=== PATIENT | female | born 1945 | race Caucasian/White ===

== ENCOUNTER 2016-12-29 10:01 | Outpatient (CLI) | payer MEDICARE, OTHER ==
--- NOTE | 2016-12-29 12:02 | CT ---
CT CHEST WITH IV CONTRAST 12/29/16 PROVIDED CLINICAL HISTORY: Lung cancer. FINDINGS: Comparison is made with the study dated 09/15/16. The heart, pericardium and great vessels demonstrate a stable CT appearance. A large right pleural effusion is redemonstrated, similar to the prior study. Atelectasis involving the right middle and right lower lobe is again seen. Emphysematous changes are again noted. The airw ay appears patent and unchanged in caliber. There is no new pulmonary parenchymal abnormality appare nt. There is no evidence for thoracic lymph node enlargement. The visualized portions of the upper a bdomen demonstrate a stable CT appearance with a 1.6 cm left adrenal nodule again demonstrated. The osseous structures demonstrate no concerning osteoblastic or osteolytic lesion. IMPRESSION: Stable exam. POS: [facility]
[2016-12-29] MEDS ORDERED: Iopamidol 370 76% 100 ML VIAL ONE (13:40)
== END 2016-12-29 10:02 | disposition home or self-care (01) ==
LOC: CT 10:01
PROVIDERS: ATTEND Internal Medicine Hematology & Oncology
DX: C34.90 Malignant neoplasm of unspecified part of unspecified bronchus or lung (principal)
CPT/HCPCS: 71260

== ENCOUNTER 2017-04-04 10:43 | Outpatient (CLI) | payer MEDICARE, OTHER ==
--- NOTE | 2017-04-04 12:46 | RAD ---
CHEST TWO VIEWS: HISTORY: Dyspnea. COMPARISON: CT chest from 12/29/2016 and radiograph from 09/15/2016. FINDINGS: The thickening along the right hilum is similar with rightward buckling of the trachea. Layering eff usion is similar. The left lung is clear. There is volume loss in the right lung. New from the comparison examination is a compression deformity, mid thoracic spine, likely at the lev el of T5 or T6. IMPRESSION: New compression deformity of the thoracic spine, likely at T5 or T6. MRI thoracic spine with and wit hout contrast may be beneficial, if there is concern for metastatic disease. CODE T POS: [facility]
== END 2017-04-04 10:44 | disposition home or self-care (01) ==
LOC: RAD 10:43
PROVIDERS: ATTEND Internal Medicine Critical Care Medicine
DX: R06.00 Dyspnea, unspecified (principal); M43.9 Deforming dorsopathy, unspecified
CPT/HCPCS: 71046

== ENCOUNTER 2017-04-13 10:19 | Outpatient (CLI) | payer MEDICARE, OTHER ==
[2017-04-13] MEDS ORDERED: Iopamidol 370 76% 100 ML VIAL ONE (13:01)
--- NOTE | 2017-04-13 13:20 | CT ---
CT CHEST WITH CONTRAST: HISTORY: Lung cancer and adrenal mass. Follow-up exam. COMPARISON: 12/29/2016 and 09/15/2016 TECHNIQUE: Multiple contiguous axial images were obtained in a CT of the chest with contrast. Coronal reformats were performed. FINDINGS: The heart is normal in size. No enlarged hilar or mediastinal lymph nodes are seen. There is a small to moderate right pleural effusion. Atelectasis is again seen in the hilar region, involving the right middle lobe and the right lower lobe. This is unchanged compared to the prior ex amination. No left pleural effusion is seen. Emphysematous changes are seen in the lungs. No pulmo nary nodule is seen in the aerated lungs. There is a nodule in the left adrenal gland measuring approximately 1.4 cm on today's examination. T he patient is status post cholecystectomy. The other visualized subdiaphragmatic structures are unre markable. Degenerative changes are seen in the spine. No suspicious osseous lesions are identified. IMPRESSION: 1. Stable central atelectasis in the right middle lobe and right lower lobe with an adjacent pleural effusion. 2. Stable to slightly smaller left adrenal nodule. POS: [facility]
== END 2017-04-13 10:20 | disposition home or self-care (01) ==
LOC: CT 10:19
PROVIDERS: ATTEND Internal Medicine Hematology & Oncology
DX: C34.31 Malignant neoplasm of lower lobe, right bronchus or lung (principal); J98.11 Atelectasis; J90 Pleural effusion, not elsewhere classified; E27.9 Disorder of adrenal gland, unspecified
CPT/HCPCS: 71260; 82565

== ENCOUNTER 2017-08-01 09:44 | Outpatient (CLI) | payer MEDICARE, OTHER ==
--- NOTE | 2017-08-01 11:18 | RAD ---
TWO VIEWS OF THE CHEST: DATE: 08/01/17. COMPARISON: 04/04/17 and prior. HISTORY: Dyspnea. FINDINGS: There is no pneumothorax. The left lung appears clear. No left pleural effusion. There is architec tural distortion in the hilar region on the right, stable. Increased pulmonary parenchymal opacities seen in the right suprahilar region and right infrahilar region, similar when compared to prior imag ing. There is a moderate-sized pleural effusion on the right which may be slightly enlarged when com pared to the prior examination. IMPRESSION: Architectural distortion in the right hilar region consistent with the provided history of malignancy . Moderate-sized right pleural effusion may be slightly larger than on the prior examination. Luis Alberto nued followup is advised. POS: [facility]
== END 2017-08-01 09:45 | disposition home or self-care (01) ==
LOC: RAD 09:44
PROVIDERS: ATTEND Internal Medicine Critical Care Medicine
DX: J90 Pleural effusion, not elsewhere classified (principal); R06.00 Dyspnea, unspecified; R91.8 Other nonspecific abnormal finding of lung field
CPT/HCPCS: 71046

== ENCOUNTER 2017-09-15 08:47 | Outpatient (CLI) | payer MEDICARE, OTHER ==
[2017-09-15] MEDS ORDERED: ISOVUE-370 76%-LOCM 1 ML ONE (12:11)
== END 2017-09-15 08:48 | disposition home or self-care (01) ==
LOC: BICCT 08:47
PROVIDERS: ATTEND Internal Medicine Hematology & Oncology
DX: C34.90 Malignant neoplasm of unspecified part of unspecified bronchus or lung (principal); J90 Pleural effusion, not elsewhere classified
CPT/HCPCS: 71260

== ENCOUNTER 2017-11-23 10:33 | Outpatient (CLI) | payer MEDICARE, OTHER ==
--- NOTE | 2017-11-23 11:54 | MMO ---
BILATERAL SCREENING MAMMOGRAM: COMPARISON: 10/23/14, 11/29/10, 01/04/06. HISTORY: A 72-year-old female. Routine screening mammography. TECHNIQUE: CC and MLO views of both breasts are submitted for interpretation. This patient's mammogram is revie wed with the assistance of computer-aided detection. FINDINGS: Breasts are composed of scattered fibroglandular tissue. No suspicious dominant mass, architectural distortion, or suspicious calcification. Bilateral benign-appearing calcifications are identified. IMPRESSION: BI-RADS category 2, benign findings. RECOMMENDATION: Annual mammogram. BIRADS 2: Benign Finding(s) Routine annual screening mammography (for women over age 40) POS: [facility]
== END 2017-11-23 10:34 | disposition home or self-care (01) ==
LOC: SCSMAMMO 10:33
PROVIDERS: ATTEND Family Medicine
DX: Z12.31 Encounter for screening mammogram for malignant neoplasm of breast (principal)
CPT/HCPCS: 77067

== ENCOUNTER 2018-01-16 08:21 | Outpatient (CLI) | payer MEDICARE, OTHER ==
--- NOTE | 2018-01-16 10:24 | CT ---
CT CHEST WITH CONTRAST: HISTORY: History of lung cancer. COMPARISON: 09/15/2017 TECHNIQUE: Multiple contiguous axial images were obtained in a CT of the chest with contrast. Coronal reformats were performed. FINDINGS: There is a moderate right pleural effusion with adjacent atelectasis. Emphysematous changes are seen in the lungs. No significant change has occurred compared to the prior examination. The left lung is well aerated without evidence of pleural effusion or atelectasis. The heart is normal in size without focal cardiac abnormality. No hilar or mediastinal lymphadenopat hy is seen. There is a mass in the left adrenal gland, measuring 1.4 cm in greatest dimension. The other visuali zed subdiaphragmatic structures are unremarkable. Degenerative changes are seen in the spine. The c hest wall soft tissues are unremarkable. IMPRESSION: 1. Stable right pleural effusion with adjacent atelectasis. 2. Emphysema. 3. Stable left adrenal mass. POS: [facility]
[2018-01-16] MEDS ORDERED: ISOVUE-370 76%-LOCM 1 ML ONE (15:51)
== END 2018-01-16 08:22 | disposition home or self-care (01) ==
LOC: BICCT 08:21
PROVIDERS: ATTEND Internal Medicine Hematology & Oncology
DX: C34.31 Malignant neoplasm of lower lobe, right bronchus or lung (principal); R06.00 Dyspnea, unspecified; R11.2 Nausea with vomiting, unspecified; J43.9 Emphysema, unspecified; E27.9 Disorder of adrenal gland, unspecified
CPT/HCPCS: 71046; 71260

== ENCOUNTER 2018-01-16 09:52 | Outpatient (CLI) | payer MEDICARE, OTHER ==
--- NOTE | 2018-01-16 11:33 | RAD ---
PA AND LATERAL CHEST: HISTORY: Dyspnea. COMPARISON: 08/01/2017 FINDINGS: A moderate sized right pleural effusion is again seen. The left lung is clear. The heart size is no rmal. Architectural distortion in the right hilum is again noted. IMPRESSION: Stable examination. POS: [facility]
== END 2018-01-16 09:53 | disposition home or self-care (01) ==
LOC: RAD 09:52
PROVIDERS: ATTEND Internal Medicine Critical Care Medicine
DX: R06.00 Dyspnea, unspecified (principal)
CPT/HCPCS: 71046

== ENCOUNTER 2018-05-11 08:52 | Outpatient (CLI) | payer MEDICARE, OTHER ==
[2018-05-11] MEDS ORDERED: ISOVUE-370 76%-LOCM 1 ML ONE (10:27)
--- NOTE | 2018-05-11 11:26 | CT ---
CT OF CHEST PERFORMED WITH INTRAVENOUS CONTRAST ENHANCEMENT: HISTORY: Followup of lung cancer. COMPARISON: 01/16/2018 study. FINDINGS: There is a large right pleural effusion present with passive atelectasis in the right lower lobe, sta ble as compared to the prior exam. Severe emphysematous lung changes are seen. These changes appear stable. The thoracic aorta is normal in caliber. No significant mediastinal, hilar, or axillary adenopathy. Visualized liver parenchyma shows no focal abnormalities. An approximately 1.3 cm left adrenal lesio n is stable. The right adrenal is normal. The gallbladder has been removed. IMPRESSION: 1. Stable overall exam. 2. Large right pleural effusion with atelectasis in the right lower lobe unchanged. 3. Severe emphysematous lung change. 4. Stable left adrenal nodule. POS: [facility]
== END 2018-05-11 08:53 | disposition home or self-care (01) ==
LOC: BICCT 08:52
PROVIDERS: ATTEND Internal Medicine Hematology & Oncology
DX: C34.31 Malignant neoplasm of lower lobe, right bronchus or lung (principal); J90 Pleural effusion, not elsewhere classified; J98.11 Atelectasis; E27.8 Other specified disorders of adrenal gland; J43.9 Emphysema, unspecified
CPT/HCPCS: 71260; Q9966

== ENCOUNTER 2018-08-16 09:39 | Outpatient (CLI) | payer MEDICARE, OTHER ==
--- NOTE | 2018-08-16 11:38 | RAD ---
2 VIEWS CHEST: Date: 08/16/18 COMPARISON: 01/16/18. HISTORY: Dyspnea. FINDINGS: 2 views of the chest show normal sized cardiomediastinal silhouette. There is a small right pleural e ffusion, unchanged. No consolidation is seen. IMPRESSION: Small right pleural effusion. POS: [facility]
== END 2018-08-16 09:40 | disposition home or self-care (01) ==
LOC: RAD 09:39
PROVIDERS: ATTEND Internal Medicine Critical Care Medicine
DX: R06.00 Dyspnea, unspecified (principal); J90 Pleural effusion, not elsewhere classified
CPT/HCPCS: 71046

== ENCOUNTER 2018-09-21 08:59 | Outpatient (CLI) | payer MEDICARE, OTHER ==
--- NOTE | 2018-09-21 11:04 | CT ---
CT CHEST WITH IV CONTRAST: HISTORY: Cancer of right lower lobe lung. COMPARISON: 05/11/2018. FINDINGS: Emphysematous changes in the lungs are again seen. The large right pleural effusion with an adjacent passive atelectasis in the right lower lobe is unchanged. No lung masses are identified. No medias tinal, hilar, or axillary lymphadenopathy is seen. There are vascular calcifications without thoracic aortic aneurysm or dissection. The pulmonary albina gaurav are well opacified without pulmonary embolism. There are degenerative changes in the spine. No osteolytic or osteoblastic lesions are seen. Upper abdominal tomograms demonstrate a stable 1.3 cm left adrenal nodule. The patient is post vishal cystectomy. IMPRESSION: Stable exam since 05/11/2018. POS: [facility]
[2018-09-21] MEDS ORDERED: ISOVUE-370 76%-LOCM 1 ML ONE (11:42)
== END 2018-09-21 09:00 | disposition home or self-care (01) ==
LOC: BICCT 08:59
PROVIDERS: ATTEND Internal Medicine Hematology & Oncology
DX: C34.31 Malignant neoplasm of lower lobe, right bronchus or lung (principal)
CPT/HCPCS: 71260; Q9966

== ENCOUNTER 2019-01-10 08:59 | Outpatient (CLI) | payer MEDICARE, OTHER ==
--- NOTE | 2019-01-10 10:03 | MMO ---
Bilateral MAMMO Bilat Screen [facility]. CLINICAL HISTORY: Patient is 73 years old and is seen for screening. The patient has no family history of breast cancer. The patient has a history of lung cancer at age 70. The patient has a history of left Excisional Biopsy at age 29 - benign. VIEWS: The views performed were: bilateral craniocaudal with tomosynthesis and bilateral mediolateral oblique with tomosynthesis. FILMS COMPARED: The present examination has been compared to prior imaging studies performed at [facility] on 10/23/2014 and 11/23/2017, and at [facility] on 01/04/2006 and 11/29/2010. This study has been interpreted with the assistance of computer-aided detection. MAMMOGRAM FINDINGS: There are scattered fibroglandular densities. There are stable benign appearing calcifications seen in both breasts. There are also vascular calcifications. There are no suspicious masses, suspicious calcifications, or new areas of architectural distortion. IMPRESSION: THERE IS NO MAMMOGRAPHIC EVIDENCE OF MALIGNANCY. A ROUTINE FOLLOW-UP MAMMOGRAM IN 1 YEAR IS RECOMMENDED. THE RESULTS OF THIS EXAM WERE SENT TO THE PATIENT. ACR BI-RADS Category 2 - Benign finding MAMMOGRAPHY NOTE: 1. A negative mammogram report should not delay a biopsy if a dominant of clinically suspicious mass is present. 2. Approximately 10% to 15% of breast cancers are not detected by mammography. 3. Adenosis and dense breasts may obscure an underlying neoplasm. Reported by: YOUNG VAZQUEZ MD Electonically Signed: [id number]
== END 2019-01-10 09:00 | disposition home or self-care (01) ==
LOC: BICMAMMO 08:59
PROVIDERS: ATTEND Family Medicine
DX: Z12.31 Encounter for screening mammogram for malignant neoplasm of breast (principal); Z85.118 Personal history of other malignant neoplasm of bronchus and lung; Z91.89 Other specified personal risk factors, not elsewhere classified
CPT/HCPCS: 77063; 77067

== ENCOUNTER 2019-01-17 09:09 | Outpatient (CLI) | payer MEDICARE, OTHER ==
--- NOTE | 2019-01-17 11:19 | CT ---
CHEST CT WITH CONTRAST: COMPARISON: 09/21/2018, 05/11/2018. HISTORY: Right lower lobe lung cancer. The patient has undergone chemotherapy and radiation therapy. FINDINGS: Lower neck and axilla: No lymphadenopathy. Mediastinum: No mass, lymphadenopathy or hematoma. Heart: Normal heart size. No significant pericardial effusion. Coronary calcifications are identified . Aorta: Appropriate enhancement and luminal diameter. Scattered atherosclerotic disease. Upper abdomen: No acute abnormality. Gallbladder is surgically absent. Stable 1.1 cm left adrenal nod ule. Trachea and central bronchi: Patent. Pleural spaces: There is persistent though decreased right-sided pleural fluid. No evidence of a left -sided pleural effusion. Pneumothorax: None. Lungs: There is partial resection of the right upper lobe. Stable emphysematous changes. There are li near densities along with consolidation involving the right lower lobe. The degree of opacification and linear densities is similar to exam. Stable irregular opacity in the middle lobe and residual rig ht lower lobe. Masses or nodules: No new suspicious masses or nodules. IMPRESSION: 1. Stable lung parenchymal changes. 2. Stable emphysema. 3. Interval decrease in size of a right-sided pleural effusion. 4. Stable left adrenal nodule. Transcribed Date/Time: 01/17/2019 11:26 AM
== END 2019-01-17 09:10 | disposition home or self-care (01) ==
LOC: BICCT 09:09
PROVIDERS: ATTEND Internal Medicine Hematology & Oncology
DX: C34.31 Malignant neoplasm of lower lobe, right bronchus or lung (principal); R11.2 Nausea with vomiting, unspecified; J43.9 Emphysema, unspecified; J90 Pleural effusion, not elsewhere classified; E27.8 Other specified disorders of adrenal gland; J98.4 Other disorders of lung
CPT/HCPCS: 71260

== ENCOUNTER 2019-02-21 10:44 | Outpatient (CLI) | payer MEDICARE, OTHER ==
--- NOTE | 2019-02-21 11:05 | RAD ---
EXAM: Chest PA and lateral: HISTORY: Dyspnea COMPARISON: 08/16/2018 FINDINGS: Heart: Normal cardiac silhouette Aorta: Unremarkable Pulmonary vessels: Normal Costophrenic angles: Stable right-sided pleural effusion Lungs: Chronic parenchymal changes in the right lung base. Stable elevation of the right hemidiaphrag m and blunting of the costophrenic angle. Pneumothorax: No pneumothorax Osseous structures: No osseous abnormalities IMPRESSION: Chronic changes in the right lung base.
== END 2019-02-21 10:45 | disposition home or self-care (01) ==
LOC: RAD 10:44
PROVIDERS: ATTEND Internal Medicine Critical Care Medicine
DX: R06.00 Dyspnea, unspecified (principal)
CPT/HCPCS: 71046

== ENCOUNTER 2019-05-18 18:45 | Emergency (ER) | payer MEDICARE, OTHER ==
[2019-05-18] MEDS ORDERED: HYDROcodone/Acetaminophen 5/325 mg Tablet ONE (19:48)
--- NOTE | 2019-05-18 20:05 | RAD ---
RIGHT KNEE RADIOGRAPHS FOUR VIEWS: 05/18/19 PROVIDED CLINICAL HISTORY: Right knee pain. FINDINGS: Comparison 10/19/26. There are transversely oriented, not significantly displaced fractures of the proximal tibial and fib ular metaphyseal regions. Degenerative changes involving the right knee are redemonstrated. Moderate knee joint capsular distention. IMPRESSION: Nondisplaced transversely oriented proximal tibial and fibular metaphyseal region fractures. POS: [facility]
--- NOTE | 2019-05-18 20:11 | CT ---
CT Brain WO Con: 05/18/2019 7:44 PM CLINICAL HISTORY: Fall with mild headache. IMAGING TECHNIQUE: Multiple CT images were obtained of the brain without IV contrast. COMPARISON: None. FINDINGS: Brain: There is mild generalized cerebral atrophy. No acute infarct, hemorrhage or hydrocephalus is present. Ventricles: Normal. No hydrocephalus. Skull: Intact. Visualized Paranasal sinuses: There is postprocedural change of prior sinus surgery involving the max illary sinuses and portions of the posterior ethmoid air cells. Mastoid air cells:Clear. Extracranial soft tissues:Normal. IMPRESSION: No acute intracranial abnormality.
--- NOTE | 2019-05-18 20:16 | CT ---
CT Cervical Spine WO Con Indication: Fall with neck pain COMPARISON: None. FINDINGS: Fracture: None. Spinal alignment: There is slight anterior translation of C4-C5 which is likely degenerative in natur e. Craniocervical junction: Within normal limits. Vertebral body heights: Maintained. Cervical spine degenerative change: Moderate to severe multilevel cervical spondylosis. There is adva nced disc degenerative disease at C6-7. There is moderate disc degenerative disease at C3-4 and C5-6. There is advanced multilevel facet osteoarthrosis. Lung apices: Severe emphysema IMPRESSION: No acute osseous abnormality.
== END 2019-05-18 21:35 | disposition home or self-care (01) ==
LOC: ERS 18:45
DX: S82.144A Nondisplaced bicondylar fracture of right tibia, initial encounter for closed fracture (principal); S89.201A Unspecified physeal fracture of upper end of right fibula, initial encounter for closed fracture; F32.9 Major depressive disorder, single episode, unspecified; Z87.891 Personal history of nicotine dependence; Z79.899 Other long term (current) drug therapy; W07.XXXA Fall from chair, initial encounter
CPT/HCPCS: 29505; 70450; 72125

== ENCOUNTER 2019-08-14 13:33 | Outpatient (CLI) | payer MEDICARE, OTHER ==
--- NOTE | 2019-08-14 14:21 | RAD ---
TWO VIEW CHEST: 08/14/19 INDICATIONS: Follow-up lung cancer. COMPARISON: 02/21/19. FINDINGS: Volume loss in the right chest again noted. Stranding in the right mid lung and blunting of the right CP angle again noted. Left lung remains clear. Heart and mediastinum unremarkable with slight shift to the right again noted. IMPRESSION: No significant interval change. POS: [facility]
== END 2019-08-14 13:34 | disposition home or self-care (01) ==
LOC: BICRAD 13:33
PROVIDERS: ATTEND Internal Medicine Critical Care Medicine
DX: R06.00 Dyspnea, unspecified (principal)
CPT/HCPCS: 71046

== ENCOUNTER 2019-12-03 13:25 | Outpatient (CLI) | payer MEDICARE, OTHER ==
[~2019-12-03 13:25] MED LIST: Iopamidol 370 76% 100 ML VIAL ONE
--- NOTE | 2019-12-03 14:38 | CT ---
CT chest with IV contrast HISTORY: Lung cancer. Restaging. COMPARISON: 08/01/2019. FINDINGS: Emphysematous changes involving each lung with hyperinflation of the left lung similar in a ppearance to the prior study. Coarsened interstitial thickening and parenchymal scarring involving the right lung base lower lobe and, to a lesser extent, right middle lobe less pronounced than on the prior study. Chronic changes along the medial aspect of the lower lobe, having the appearance of prior radiation port, stable. No lung nodules. Right pleural fluid has decreased slightly since the prior exam. There is calcification within the coronary arteries and other arterial structures. Very small low-den sity left adrenal nodule with adjacent calcification is stable. Gallbladder surgically absent. Mild chronic-appearing compressions of T7 and L2 are stable. Prominent degenerative changes lower cer vical spine partially visualized. IMPRESSION : Very slight interval decrease in right pleural fluid. Parenchymal scarring and radiation changes of t he right lung are otherwise stable. No new abnormalities are demonstrated.
== END 2019-12-03 13:26 | disposition home or self-care (01) ==
LOC: BICCT 13:25
PROVIDERS: ATTEND Internal Medicine Hematology & Oncology
DX: C34.31 Malignant neoplasm of lower lobe, right bronchus or lung (principal); J98.4 Other disorders of lung
CPT/HCPCS: 71260; Q9967

== ENCOUNTER 2020-02-18 10:26 | Outpatient (CLI) | payer MEDICARE, OTHER ==
--- NOTE | 2020-02-18 11:04 | RAD ---
EXAM: Chest PA and lateral: HISTORY: Dyspnea. COMPARISON: 08/14/2019 Correlation: 12/03/2019 FINDINGS: Heart: Normal cardiac silhouette Aorta: Unremarkable Pulmonary vessels: Normal Costophrenic angles: Stable blunting of the right costophrenic angle with stable pleural fluid. Lungs: Persistent diminished right lung volume. Patchy opacities are presumed to represent chronic ch yu. Residual neoplasm in the right lung cannot be excluded. Correlation made with chest CT 12/03/2019 does not demonstrate a suspected new opacity in the superior segment of the right lower lob e, best demonstrated on the lateral radiograph. Repeat chest CT may be beneficial Pneumothorax: No pneumothorax Osseous structures: No osseous abnormalities IMPRESSION: 1 Possible increased new opacity in the right lower lobe. Based upon clinical suspicion, repeat chest CT with contrast can be performed. 2. Redemonstration of a right-sided pleural effusion. CODE T
== END 2020-02-18 10:27 | disposition home or self-care (01) ==
LOC: BICRAD 10:26
PROVIDERS: ATTEND Internal Medicine Critical Care Medicine
DX: R06.00 Dyspnea, unspecified (principal); J90 Pleural effusion, not elsewhere classified
CPT/HCPCS: 71046

== ENCOUNTER 2020-03-17 14:04 | Outpatient (CLI) | payer MEDICARE, OTHER ==
--- NOTE | 2020-03-17 14:37 | RAD ---
EXAM: XR Chest Pa Lat STANDARD PROVIDED CLINICAL HISTORY: Follow-up pneumonia COMPARISON: 02/18/2020 FINDINGS: Cardiac and mediastinal silhouette is unchanged in appearance. There is persistent right hemithoracic volume loss with right basilar pleural-parenchymal opacity. There is increased airspace disease involving the right mid and lower lung zones. Emphysematous changes are redemonstrated. The left lung remains clear. There is no evidence for pneumothorax. IMPRESSION: Worsened airspace disease involving the right lung.
== END 2020-03-17 14:05 | disposition home or self-care (01) ==
LOC: BICRAD 14:04
PROVIDERS: ATTEND Internal Medicine Critical Care Medicine
DX: R06.00 Dyspnea, unspecified (principal); J98.4 Other disorders of lung
CPT/HCPCS: 71046

== ENCOUNTER 2020-03-20 08:23 | Outpatient (CLI) | payer MEDICARE, OTHER ==
--- NOTE | 2020-03-20 09:23 | CT ---
CT THORAX WITH CONTRAST: DATE: 03/20/2020 HISTORY: 74-year-old female with history of lung cancer with worsening pneumonia COMPARISON: 12/03/2019 FINDINGS: Again noted is the cardiomediastinal shift to the right due to chronic volume loss of the right lung. There are centrilobular emphysematous changes in the bilateral upper lobes and superior segment of le ft lower lobe. Previously, there was a chronic consolidation-soft tissue density confluent mass, which may represent scar tissue extending from the right inferior hilum down to the right posterior medial lung base, with architectural distortion, air bronchogram, and with associated small right pleural effusion. The size of this chronic consolidation is unchanged. However, a focal masslike component of this consolidation located directly posterior to the right mainstem bronchus, abutting the right lateral a spect of the esophagus, is now less dense (axial image 27 of 67, series 3 and series 2). The volume of right pleural effusion is has not greatly changed. At the right midlung zone, there were scattered previously demonstrated extensive pulmonary scarring. Currently, these areas have superimposed new infiltrates. (Axial images 31 and 38 of 67, series 3). No left-sided infiltrate or left pleural effusion. Small left adrenal nodule is unchanged consistent with adrenal adenoma. No cardiomegaly or pericardial effusion. No new mediastinal lymphadenopathy. No thoracic aortic aneurysm or dissection. IMPRESSION: 1) new or worsening infiltrates in the right lung, unchanged since prior CT, suspicious for infectiou s pneumonitis-pneumonia. 2) severe chronic changes of the right lung including post radiation changes, with chronic consolidat ion, and right pleural effusion, which are unchanged. 3) centrilobular emphysema
[2020-03-20] MEDS ORDERED: Iopamidol 370 76% 100 ML VIAL ONE (13:19)
== END 2020-03-20 08:24 | disposition home or self-care (01) ==
LOC: CT 08:23
PROVIDERS: ATTEND Internal Medicine Critical Care Medicine
DX: C34.90 Malignant neoplasm of unspecified part of unspecified bronchus or lung (principal); J43.2 Centrilobular emphysema; J18.1 Lobar pneumonia, unspecified organism; J90 Pleural effusion, not elsewhere classified
CPT/HCPCS: 71260; Q9967

== ENCOUNTER 2020-05-07 10:41 | Outpatient (CLI) | payer MEDICARE, OTHER ==
[2020-05-07 17:26] LABS: SARS-CoV-2 PCR by NAA Not Detected (NotDetected)
== END 2020-05-07 10:42 | disposition home or self-care (01) ==
LOC: LABBT 10:41
PROVIDERS: ATTEND Internal Medicine Hematology & Oncology
DX: Z01.812 Encounter for preprocedural laboratory examination (principal); Z20.822 Contact with and (suspected) exposure to COVID-19
CPT/HCPCS: U0003; U0005; 87635

== ENCOUNTER 2020-05-11 09:01 | Outpatient (CLI) | payer MEDICARE, OTHER ==
--- NOTE | 2020-05-11 22:39 | RAD ---
MODIFIED BARIUM SWALLOW WITH SPEECH THERAPIST: Date: 05/11/2020 HISTORY: 74-year-old female. Dysphagia, unspecified, R13.10. Feeding difficulties, R63.3. History of lung cancer. FINDINGS: Thin liquid swallow results in immediate strong penetration to the level of the vocal cords. Significant residua in vallecula. Elongated epiglottis results in incomplete epiglottic inversion. Hyoid protraction and laryngeal elevation adequate. [place]: Penetration. Large residue in vallecula which only minimally partially clears upon repeat swallow. [place] swallow with chin-tuck results in similar findings, with penetration and large amount of resid ue in vallecula. Large amount of vallecula with solids. IMPRESSION: 1. Pharyngeal dysphagia consisting of the followin. Significant penetration. 3. Significant residue in vallecula with all consistencies, with poor clearance upon repeat swallows . 4. Incomplete epiglottic inversion due to elongated epiglottis. 5. See complete report by speech therapist. POS: [facility]
== END 2020-05-11 09:02 | disposition home or self-care (01) ==
PROVIDERS: ATTEND Internal Medicine Hematology & Oncology
DX: R13.10 Dysphagia, unspecified (principal); R63.3 Feeding difficulties; Z85.118 Personal history of other malignant neoplasm of bronchus and lung
CPT/HCPCS: 74230

== ENCOUNTER 2020-05-19 11:56 | Outpatient (CLI) | payer MEDICARE, OTHER | END 2020-05-19 11:57 | disposition home or self-care (01) | LOC: BICRAD 11:56 | PROVIDERS: ATTEND Internal Medicine Critical Care Medicine | DX: R06.00 Dyspnea, unspecified (principal); J98.4 Other disorders of lung | CPT/HCPCS: 71046 ==

== ENCOUNTER 2020-07-13 17:50 | Inpatient (IN) | payer MEDICARE, OTHER ==
[~2020-07-13 17:50] MED LIST changes: -Iopamidol 370 76% 100 ML VIAL ONE; +Iopamidol-370 76% 500 ML 1 ML ONE
[2020-07-13 18:44] LABS: Hemoglobin 12.2 g/dL (12.0-16.0); Mean Corpuscular HGB CONC 33.5 g/dL (32.0-36.0); Mean Corpuscular Hemoglobin 28.4 pg (27.0-31.0); Mean Corpuscular Volume 84.7 fL (78.0-98.0); Mean Platelet Volume 7.9 fL (7.4-10.4); Platelet Count 301 thou/uL (130-400); RBC Distribution Width 15.5 % (11.5-14.5); Red Blood Cell (RBC) Count 4.31 mill/uL (4.20-5.40)
[2020-07-13 19:06] LABS: Band 2 % (5-11); Lymphocytes 19 % (21-51); MDiff Complete? YES; Monocytes 11 % (0-10); Neutrophil 67 % (42-75); Platelet Morphology Comment Appears Adequate; RBC Morphology Normal
[2020-07-13 19:14] LABS: ALT (SGPT) 29 U/L (8-55); AST (SGOT) 50 U/L (5-34); Albumin 3.4 g/dL (3.4-4.8); Alkaline Phosphatase 264 U/L (40-110); Anion Gap 16 mmol/L (10-20); BUN (Urea Nitrogen) 20 mg/dL (9.8-20.1); Bilirubin, Total 0.6 mg/dL (0.2-1.2); Calc. Creatinine Clearance 0 mL/min (70-130); Calcium 9.6 mg/dL (7.8-10.44); Carbon Dioxide 21 mmol/L (23-31); Chloride 101 mmol/L (98-107); Globulin 3.7 g/dL (2.4-3.5); Glucose 114 mg/dL (83-110); Potassium 4.8 mmol/L (3.5-5.1); Protein, Total 7.1 g/dL (5.8-8.1); Sodium 133 mmol/L (136-145)
[2020-07-13] MEDS ORDERED: cefTRIAXone\\ROCEPHIN 1 GM VIAL ONE (21:56)
[2020-07-13] MEDS ORDERED: HYDROcodone/Acetaminophen 5/325 mg Tablet PO PRN (22:13)
[2020-07-13] MEDS ORDERED: hydrALAZINE 20 MG/ML VIAL SLOW IVP PRN (22:16)
[2020-07-13] MEDS ORDERED: Azithromycin 500 MG VIAL ONE (22:55)
[2020-07-13] MEDS ORDERED: Vancomycin 1 GM in Premix Bag 1 BAG IVPB SCH (23:00)
[2020-07-13 23:35] LABS: Bacteria/HPF None Seen HPF (None Seen); Bilirubin Negative (Negative); Blood, Urine 1+ (Negative); Clarity Clear (Clear); Glucose, Urine (Dipstick) Normal (Negative); Ketone, Urine Negative (Negative); Leukocyte 500 Leu/uL (Negative); Nitrite Negative (Negative); Protein, Urine (Dipstick) 10 mg/dL (Neg-Trace); Specific Gravity, Urine 1.044 (1.002-1.036); Urobilinogen Normal mg/dL (Less than 2); WBC/HPF Greater than 50 HPF (0-3); pH, Urine 5.5 (5.0-9.0)
[2020-07-14 00:08] VITALS: BMI 22.1
[2020-07-14] MEDS: Dextrose 5 % And 0.9 % NaCl 1,000 ML IV SCH ×2 (00:28→22:31)
[2020-07-14] MEDS: Clindamycin/D5W 300 MG/50 ML BAG IVPB SCH ×2 (01:00→05:20)
[2020-07-14 05:25] LABS: SARS-CoV-2 PCR by NAA Not Detected (NotDetected)
[2020-07-14 06:58] LABS: Band 7 % (5-11); Eosinophils 4 % (0-10); Hemoglobin 9.5 g/dL (12.0-16.0); Lymphocytes 23 % (21-51); MDiff Complete? YES; Mean Corpuscular HGB CONC 33.1 g/dL (32.0-36.0); Mean Corpuscular Hemoglobin 28.4 pg (27.0-31.0); Mean Corpuscular Volume 85.7 fL (78.0-98.0); Mean Platelet Volume 7.9 fL (7.4-10.4); Monocytes 16 % (0-10); Neutrophil 49 % (42-75); Platelet Count 207 thou/uL (130-400); Platelet Morphology Comment Appears Adequate; RBC Distribution Width 15.3 % (11.5-14.5); Red Blood Cell (RBC) Count 3.36 mill/uL (4.20-5.40); White Blood Cell (WBC) Count 4.3 thou/uL (4.8-10.8)
[2020-07-14 07:06] LABS: Anion Gap 11 mmol/L (10-20); BUN (Urea Nitrogen) 16 mg/dL (9.8-20.1); Calc. Creatinine Clearance 53 mL/min (70-130); Calcium 8.3 mg/dL (7.8-10.44); Carbon Dioxide 23 mmol/L (23-31); Chloride 107 mmol/L (98-107); Glucose 109 mg/dL (83-110); Potassium 4.2 mmol/L (3.5-5.1); Sodium 137 mmol/L (136-145)
[2020-07-14] MEDS ORDERED: Sodium Chloride 0.9% 500 ML IV SCH (08:30)
[2020-07-14] MEDS: Midodrine HCl 5 MG TAB PO SCH ×3 (08:51→21:47)
[2020-07-14] MEDS: Famotidine/PF 20 mg/2ml Vial SLOW IVP SCH (08:54)
[2020-07-14] MEDS: Enoxaparin Sodium 40 MG/0.4 ML SYRINGE SC SCH (08:54)
[2020-07-14] MEDS: MEROPENEM 1 GM/50 ML 1 GM in Premix Bag 1 BAG IVPB SCH ×2 (09:29→17:27)
[2020-07-14] MEDS: Dextrose 5 %-0.45 % NaCl 1,000 ML IV SCH ×2 (13:00→21:46)
[2020-07-14] MEDS: methylPREDNISolone Sod Succ 40 MG VIAL IVP SCH ×2 (17:57→23:14)
[2020-07-14] MEDS ORDERED: Vancomycin HCl 1.25 GM in Sodium Chloride 0.9% 250 ML 250 ML IVPB SCH (23:00)
[2020-07-15] MEDS: MEROPENEM 1 GM/50 ML 1 GM in Premix Bag 1 BAG IVPB SCH ×3 (01:02→17:43)
[2020-07-15] MEDS: methylPREDNISolone Sod Succ 40 MG VIAL IVP SCH ×4 (05:34→23:44)
[2020-07-15] MEDS: Dextrose 5 %-0.45 % NaCl 1,000 ML IV SCH (05:38)
[2020-07-15] MEDS ORDERED: Sodium Chloride 0.9% 500 ML IV SCH (06:00)
[2020-07-15] MEDS ORDERED: Dextrose 5 %-0.45 % NaCl 1,000 ML IV SCH (08:01)
[2020-07-15] MEDS: Midodrine HCl 5 MG TAB PO SCH ×3 (08:22→20:17)
[2020-07-15] MEDS: Enoxaparin Sodium 40 MG/0.4 ML SYRINGE SC SCH (08:23)
[2020-07-15] MEDS: Famotidine/PF 20 mg/2ml Vial SLOW IVP SCH (08:23)
[2020-07-15] MEDS: Acetaminophen 325 MG TAB PO PRN (15:33)
[2020-07-15] MEDS: Melatonin 3 MG TAB PO SCH (21:24)
[2020-07-15] MEDS: clonazePAM 1 MG TAB PO SCH (21:24)
[2020-07-16] MEDS: MEROPENEM 1 GM/50 ML 1 GM in Premix Bag 1 BAG IVPB SCH ×3 (01:02→16:20)
[2020-07-16] MEDS: methylPREDNISolone Sod Succ 40 MG VIAL IVP SCH ×3 (05:31→17:38)
[2020-07-16] MEDS: Midodrine HCl 5 MG TAB PO SCH ×3 (08:18→20:49)
[2020-07-16] MEDS: clonazePAM 1 MG TAB PO SCH ×2 (08:18→20:50)
[2020-07-16] MEDS: Famotidine/PF 20 mg/2ml Vial SLOW IVP SCH (08:36)
[2020-07-16] MEDS: Acetaminophen 325 MG TAB PO PRN ×2 (08:36→17:38)
[2020-07-16] MEDS ORDERED: PROPOFOL 200 MG/20 ML VIAL ONE (11:34)
[2020-07-16] MEDS ORDERED: Ondansetron HCl/PF 4 MG/2 ML Vial IVP PRN (11:52)
[2020-07-16] MEDS ORDERED: Promethazine HCl 25 MG/ML VIAL SLOW IVP PRN (11:52)
[2020-07-16] MEDS ORDERED: Promethazine HCl 25 MG/ML VIAL IM PRN (11:52)
[2020-07-16] MEDS: Melatonin 3 MG TAB PO SCH (20:50)
[2020-07-17] MEDS: methylPREDNISolone Sod Succ 40 MG VIAL IVP SCH ×3 (00:25→12:42)
[2020-07-17] MEDS: MEROPENEM 1 GM/50 ML 1 GM in Premix Bag 1 BAG IVPB SCH ×2 (01:43→09:00)
[2020-07-17] MEDS: Enoxaparin Sodium 40 MG/0.4 ML SYRINGE SC SCH (08:58)
[2020-07-17] MEDS: clonazePAM 1 MG TAB PO SCH (09:00)
[2020-07-17] MEDS: Midodrine HCl 5 MG TAB PO SCH ×2 (09:00→17:48)
[2020-07-17] MEDS ORDERED: Pantoprazole 40 MG VIAL IVP SCH (09:00)
[2020-07-17 09:27] VITALS: TEMP 98
[2020-07-17 11:28] LABS: #Lymphocytes 0.4 thou/uL (1.20-3.40); #Monocytes 0.6 thou/uL (0.11-0.59); #Neutrophils 8.6 thou/uL (1.40-6.50); %Eosinophils 0.3 % (0.0-10.0); %Monocytes 5.9 % (0.0-10.0); %Neutrophils 89.8 % (42.0-75.0); Mean Corpuscular HGB CONC 31.6 g/dL (32.0-36.0); Mean Corpuscular Hemoglobin 27.2 pg (27.0-31.0); Mean Platelet Volume 7.9 fL (7.4-10.4); Platelet Count 376 thou/uL (130-400); RBC Distribution Width 16.2 % (11.5-14.5); Red Blood Cell (RBC) Count 3.69 mill/uL (4.20-5.40); White Blood Cell (WBC) Count 9.6 thou/uL (4.8-10.8)
[2020-07-17 11:41] LABS: Anion Gap 14 mmol/L (10-20); BUN (Urea Nitrogen) 21 mg/dL (9.8-20.1); Calc. Creatinine Clearance 46 mL/min (70-130); Calcium 9.3 mg/dL (7.8-10.44); Carbon Dioxide 24 mmol/L (23-31); Chloride 108 mmol/L (98-107); Glucose 146 mg/dL (83-110); Potassium 3.8 mmol/L (3.5-5.1); Sodium 142 mmol/L (136-145)
[2020-07-17 12:38] VITALS: BP 129/68
[2020-07-17] MEDS: Acetaminophen 325 MG TAB PO PRN (13:31)
== END 2020-07-17 17:50 | disposition home or self-care (01) | DRG 178 ==
LOC: ERS 17:50 → ONC 21:43 → OBSVTOIN 07-14 17:01
PROVIDERS: ADMIT Internal Medicine; ATTEND Internal Medicine
PROC: 0DH63UZ Insertion of Feeding Device into Stomach, Percutaneous Approach (ICD-10-PCS; principal; 2020-07-16)
PROC: 0DB48ZX Excision of Esophagogastric Junction, Via Natural or Artificial Opening Endoscopic, Diagnostic (ICD-10-PCS; 2020-07-16)
DX: J69.0 Pneumonitis due to inhalation of food and vomit (principal); E44.1 Mild protein-calorie malnutrition; C34.91 Malignant neoplasm of unspecified part of right bronchus or lung; C79.70 Secondary malignant neoplasm of unspecified adrenal gland; N17.9 Acute kidney failure, unspecified; Z20.822 Contact with and (suspected) exposure to COVID-19; K59.03 Drug induced constipation; F41.9 Anxiety disorder, unspecified; F32.9 Major depressive disorder, single episode, unspecified; J44.9 Chronic obstructive pulmonary disease, unspecified; R13.12 Dysphagia, oropharyngeal phase; K25.9 Gastric ulcer, unspecified as acute or chronic, without hemorrhage or perforation; Z88.0 Allergy status to penicillin; Z68.22 Body mass index [BMI] 22.0-22.9, adult; Z79.899 Other long term (current) drug therapy; Z79.52 Long term (current) use of systemic steroids; Z90.49 Acquired absence of other specified parts of digestive tract; Z90.10 Acquired absence of unspecified breast and nipple; Z85.3 Personal history of malignant neoplasm of breast; Z92.3 Personal history of irradiation; Z92.21 Personal history of antineoplastic chemotherapy; Z90.13 Acquired absence of bilateral breasts and nipples; Z87.891 Personal history of nicotine dependence
CPT/HCPCS: 36415; 71045; 71275; 80048; 80053; 81003; 81015; 83605; 83880; 84145; 84484; 85025; 87040; 87086; 87635; 88305; 88341; 88342; 93005; 94640; 96365; 96367; 96372; 96375; 96376; C9113; G0378; J0456; J0696; J1650; J2185; J2704; J2920; J3370; J3490; J7050; J7620; Q9967; S0028; U0003; U0005

== ENCOUNTER 2020-11-17 12:44 | Outpatient (CLI) | payer MEDICARE, OTHER | END 2020-11-17 12:45 | disposition home or self-care (01) | LOC: BICRAD 12:44 | PROVIDERS: ATTEND Internal Medicine Critical Care Medicine | DX: R06.00 Dyspnea, unspecified (principal) | CPT/HCPCS: 71046 ==

== ENCOUNTER 2021-01-04 18:49 | Inpatient (IN) | payer MEDICARE, OTHER ==
[2021-01-04] MEDS ORDERED: Ondansetron PF 4 MG/2 ML Vial IVP PRN (20:23)
[2021-01-04] MEDS ORDERED: Senokot S 8.6-50 MG TAB PO PRN (20:23)
[2021-01-04] MEDS ORDERED: Ondansetron ODT 4 MG TAB PO PRN (20:23)
[2021-01-04] MEDS ORDERED: Albuterol Sulfate 2.5 mg/3 ml Neb NEB PRN (20:29)
[2021-01-04] MEDS ORDERED: Metoprolol Tartrate 5 MG/5 ML VIAL IVP PRN (21:25)
[2021-01-04 21:50] LABS: Hemoglobin 9.7 g/dL (12.0-16.0); Mean Corpuscular HGB CONC 31.9 g/dL (32.0-36.0); Mean Corpuscular Hemoglobin 27.9 pg (27.0-31.0); Mean Corpuscular Volume 87.6 fL (78.0-98.0); Mean Platelet Volume 8.6 fL (7.4-10.4); Platelet Count 236 thou/uL (130-400); RBC Distribution Width 16.7 % (11.5-14.5); Red Blood Cell (RBC) Count 3.48 mill/uL (4.20-5.40); White Blood Cell (WBC) Count 12.2 thou/uL (4.8-10.8)
[2021-01-04 21:59] LABS: Anion Gap 16 mmol/L (10-20); BUN (Urea Nitrogen) 32 mg/dL (9.8-20.1); Calc. Creatinine Clearance 0 mL/min (70-130); Calcium 7.9 mg/dL (7.8-10.44); Carbon Dioxide 24 mmol/L (23-31); Chloride 108 mmol/L (98-107); Glucose 95 mg/dL (83-110); Magnesium 1.8 mg/dL (1.6-2.6); Potassium 4.5 mmol/L (3.5-5.1); Sodium 143 mmol/L (136-145)
[2021-01-04 22:05] LABS: Band 22 % (5-11); Lymphocytes 6 % (21-51); MDiff Complete? YES; Monocytes 5 % (0-10); Neutrophil 67 % (42-75)
[2021-01-04 22:59] VITALS: BMI 25.4
[2021-01-04] MEDS: Clindamycin/D5W 600 MG in Premix Bag 1 BAG IVPB SCH (23:04)
[2021-01-04] MEDS: VANCOMYCIN 1.25 GM/250 ML BAG 1.25 GM in Premix Bag 1 BAG IVPB SCH (23:48)
[2021-01-05] MEDS: guaiFENesin 200 MG TAB PO PRN
[2021-01-05] MEDS: Clindamycin/D5W 600 MG in Premix Bag 1 BAG IVPB SCH ×3 (05:29→21:10)
[2021-01-05 06:11] LABS: Hemoglobin 9.5 g/dL (12.0-16.0); Mean Corpuscular Hemoglobin 28.1 pg (27.0-31.0); Mean Corpuscular Volume 87.8 fL (78.0-98.0); Mean Platelet Volume 8.8 fL (7.4-10.4); Platelet Count 219 thou/uL (130-400); RBC Distribution Width 16.6 % (11.5-14.5); White Blood Cell (WBC) Count 11.5 thou/uL (4.8-10.8)
[2021-01-05 06:22] LABS: Anion Gap 14 mmol/L (10-20); BUN (Urea Nitrogen) 30 mg/dL (9.8-20.1); Calc. Creatinine Clearance 67 mL/min (70-130); Carbon Dioxide 23 mmol/L (23-31); Chloride 106 mmol/L (98-107); Glucose 90 mg/dL (83-110); Potassium 4.2 mmol/L (3.5-5.1); Sodium 139 mmol/L (136-145)
[2021-01-05 06:39] LABS: Band 20 % (5-11); Lymphocytes 4 % (21-51); MDiff Complete? YES; Monocytes 5 % (0-10); Neutrophil 71 % (42-75)
[2021-01-05] MEDS: Famotidine 20 MG TAB PO SCH ×2 (08:01→21:10)
[2021-01-05] MEDS: Enoxaparin Sodium 40 MG/0.4 ML SYRINGE SC SCH (08:01)
[2021-01-05] MEDS ORDERED: FLU VACC QS2021-22(65YR UP)/PF 240 MCG/0.7 ML SYRINGE IM ONE (09:00)
[2021-01-05] MEDS ORDERED: Non-Formulary Item 1 EACH (Melatonin [Melatonin] 10 MG Tablet) PO PRN (09:04)
[2021-01-05] MEDS ORDERED: Melatonin 3 MG TAB PO PRN (09:45)
[2021-01-05] MEDS: Acetaminophen 325 MG TAB PO PRN (15:43)
[2021-01-06] MEDS: VANCOMYCIN 1.25 GM/250 ML BAG 1.25 GM in Premix Bag 1 BAG IVPB SCH (00:07)
[2021-01-06] MEDS: Clindamycin/D5W 600 MG in Premix Bag 1 BAG IVPB SCH ×3 (05:24→21:06)
[2021-01-06] MEDS: Enoxaparin Sodium 40 MG/0.4 ML SYRINGE SC SCH (08:16)
[2021-01-06] MEDS: clonazePAM 1 MG TAB PO SCH (08:16)
[2021-01-06] MEDS: Famotidine 20 MG TAB PO SCH ×2 (08:17→21:04)
[2021-01-06] MEDS ORDERED: Non-Formulary Item 1 EACH (Prednisone [Prednisone] 10 MG Tablet) PO SCH (09:00)
[2021-01-06] MEDS ORDERED: Non-Formulary Item 1 EACH (Sertraline Hcl [Sertraline Hcl] 50 MG Tablet) PO SCH (09:00)
[2021-01-06] MEDS ORDERED: Metoprolol Tartrate 25 MG TAB PO SCH (11:15)
[2021-01-06] MEDS: predniSONE 5 MG TAB PO SCH (11:35)
[2021-01-06] MEDS: Acetaminophen 325 MG TAB PO PRN (11:55)
[2021-01-06] MEDS: guaiFENesin 200 MG TAB PO PRN (11:56)
[2021-01-06] MEDS: Metoprolol Tartrate 25 MG TAB PO SCH (21:05)
[2021-01-07 00:18] LABS: Vancomycin, Trough 12.5 ug/mL
[2021-01-07] MEDS: Vancomycin 1.5 GRAM/300 ML BAG 1.5 GM in Premix Bag 1 BAG IVPB SCH (01:10)
[2021-01-07] MEDS: Clindamycin/D5W 600 MG in Premix Bag 1 BAG IVPB SCH ×3 (05:54→20:40)
[2021-01-07] MEDS: Famotidine 20 MG TAB PO SCH ×2 (10:21→20:30)
[2021-01-07] MEDS: predniSONE 5 MG TAB PO SCH (10:21)
[2021-01-07] MEDS: clonazePAM 1 MG TAB PO SCH (10:22)
[2021-01-07] MEDS: Metoprolol Tartrate 25 MG TAB PO SCH ×2 (10:22→20:30)
[2021-01-07] MEDS: Enoxaparin Sodium 40 MG/0.4 ML SYRINGE SC SCH (10:23)
[2021-01-07] MEDS: Acetaminophen 325 MG TAB PO PRN (15:51)
[2021-01-08] MEDS: Vancomycin 1.5 GRAM/300 ML BAG 1.5 GM in Premix Bag 1 BAG IVPB SCH (00:33)
[2021-01-08] MEDS: Clindamycin/D5W 600 MG in Premix Bag 1 BAG IVPB SCH (05:30)
[2021-01-08 05:47] LABS: #Basophils 0.1 thou/uL (0.0-0.2); #Eosinphils 0.2 thou/uL (0.0-0.7); #Lymphocytes 0.6 thou/uL (1.20-3.40); #Monocytes 0.7 thou/uL (0.11-0.59); #Neutrophils 8.4 thou/uL (1.40-6.50); %Eosinophils 2.4 % (0.0-10.0); %Monocytes 7.3 % (0.0-10.0); %Neutrophils 83.3 % (42.0-75.0); Hemoglobin 10.4 g/dL (12.0-16.0); Mean Corpuscular HGB CONC 32.2 g/dL (32.0-36.0); Mean Platelet Volume 8.3 fL (7.4-10.4); Platelet Count 283 thou/uL (130-400); RBC Distribution Width 16.9 % (11.5-14.5); Red Blood Cell (RBC) Count 3.73 mill/uL (4.20-5.40); White Blood Cell (WBC) Count 10.1 thou/uL (4.8-10.8)
[2021-01-08 06:06] LABS: Anion Gap 15 mmol/L (10-20); BUN (Urea Nitrogen) 19 mg/dL (9.8-20.1); Calc. Creatinine Clearance 72 mL/min (70-130); Calcium 8.2 mg/dL (7.8-10.44); Carbon Dioxide 27 mmol/L (23-31); Chloride 101 mmol/L (98-107); Glucose 75 mg/dL (83-110); Potassium 4.5 mmol/L (3.5-5.1); Sodium 138 mmol/L (136-145)
[2021-01-08] MEDS: Metoprolol Tartrate 25 MG TAB PO SCH (08:30)
[2021-01-08] MEDS: clonazePAM 1 MG TAB PO SCH (08:30)
[2021-01-08] MEDS: predniSONE 5 MG TAB PO SCH (08:31)
[2021-01-08] MEDS: Acetaminophen 325 MG TAB PO PRN (08:31)
[2021-01-08] MEDS: Enoxaparin Sodium 40 MG/0.4 ML SYRINGE SC SCH (08:31)
[2021-01-08] MEDS: Famotidine 20 MG TAB PO SCH (08:31)
[2021-01-08 12:01] VITALS: BP 94/64; TEMP 97.9
== END 2021-01-08 16:02 | disposition home or self-care (01) | DRG 871 ==
LOC: ERS 18:49 → 3SE 20:13
PROVIDERS: ADMIT Student in an Organized Health Care Education/Training Program; ATTEND Internal Medicine
DX: A41.9 Sepsis, unspecified organism (principal); J13 Pneumonia due to Streptococcus pneumoniae; R65.21 Severe sepsis with septic shock; J96.21 Acute and chronic respiratory failure with hypoxia; E46 Unspecified protein-calorie malnutrition; I47.1 Supraventricular tachycardia; C34.91 Malignant neoplasm of unspecified part of right bronchus or lung; C79.70 Secondary malignant neoplasm of unspecified adrenal gland; I48.92 Unspecified atrial flutter; M19.90 Unspecified osteoarthritis, unspecified site; F32.A Depression, unspecified; F41.9 Anxiety disorder, unspecified; Z88.0 Allergy status to penicillin; Z85.3 Personal history of malignant neoplasm of breast; Z92.21 Personal history of antineoplastic chemotherapy; Z92.3 Personal history of irradiation; Z90.49 Acquired absence of other specified parts of digestive tract; Z93.1 Gastrostomy status; Z87.891 Personal history of nicotine dependence; Z68.25 Body mass index [BMI] 25.0-25.9, adult; Z90.710 Acquired absence of both cervix and uterus
CPT/HCPCS: 36415; 80048; 80202; 83605; 83735; 85025; 93005; 93010; 94640; 99285; J1650; J1956; J3370; J3490; J7512; J7620

== ENCOUNTER 2021-01-19 13:16 | Outpatient (CLI) | payer MEDICARE, OTHER | END 2021-01-19 13:17 | disposition home or self-care (01) | LOC: RAD 13:16 | PROVIDERS: ATTEND Internal Medicine Critical Care Medicine | DX: R06.00 Dyspnea, unspecified (principal); A15.0 Tuberculosis of lung | CPT/HCPCS: 71046 ==

== ENCOUNTER 2021-03-03 11:55 | Inpatient (IN) | payer MEDICARE, OTHER ==
[~2021-03-03 11:55] MED LIST changes: +ISOVUE-370 76%-LOCM 1 ML ONE; -Iopamidol-370 76% 500 ML 1 ML ONE
[2021-03-03 12:26] LABS: #Eosinphils 0.1 thou/uL (0.0-0.7); #Lymphocytes 1.2 thou/uL (1.20-3.40); #Monocytes 0.8 thou/uL (0.11-0.59); #Neutrophils 9.4 thou/uL (1.40-6.50); %Basophils 0.4 % (0.0-1.0); %Eosinophils 1.2 % (0.0-10.0); %Lymphocytes 10.1 % (21.0-51.0); %Monocytes 7.2 % (0.0-10.0); %Neutrophils 81.2 % (42.0-75.0); Hemoglobin 14.4 g/dL (12.0-16.0); Mean Corpuscular HGB CONC 30.9 g/dL (32.0-36.0); Mean Corpuscular Hemoglobin 28.9 pg (27.0-31.0); Mean Corpuscular Volume 93.4 fL (78.0-98.0); Mean Platelet Volume 8.2 fL (7.4-10.4); Platelet Count 268 thou/uL (130-400); RBC Distribution Width 17.7 % (11.5-14.5); Red Blood Cell (RBC) Count 4.98 mill/uL (4.20-5.40); White Blood Cell (WBC) Count 11.6 thou/uL (4.8-10.8)
[2021-03-03 12:39] LABS: Prothrombin Time 12.8 sec (12.0-14.7)
[2021-03-03 12:40] LABS: PTT 25.7 sec (22.9-36.1)
[2021-03-03 12:47] LABS: ALT (SGPT) 36 U/L (8-55); AST (SGOT) 37 U/L (5-34); Albumin 3.7 g/dL (3.4-4.8); Alkaline Phosphatase 100 U/L (40-110); Anion Gap 16 mmol/L (10-20); BUN (Urea Nitrogen) 38 mg/dL (9.8-20.1); Bilirubin, Total 0.4 mg/dL (0.2-1.2); Calc. Creatinine Clearance 0 mL/min (70-130); Calcium 9.7 mg/dL (7.8-10.44); Carbon Dioxide 24 mmol/L (23-31); Chloride 103 mmol/L (98-107); Globulin 3.7 g/dL (2.4-3.5); Glucose 101 mg/dL (83-110); Potassium 5.3 mmol/L (3.5-5.1); Protein, Total 7.4 g/dL (5.8-8.1); Sodium 138 mmol/L (136-145)
[2021-03-03 13:19] LABS: SARS-CoV-2 NAA Rapid Test Not Detected (NotDetected)
[2021-03-03] MEDS ORDERED: Azithromycin 250 MG TAB ONE (13:30)
[2021-03-03] MEDS ORDERED: cefTRIAXone\\ROCEPHIN 2 GM VIAL ONE (13:30)
[2021-03-03] MEDS ORDERED: Enoxaparin Sodium 60 MG/0.6 ML SYRINGE ONE (14:00)
[2021-03-03] MEDS ORDERED: Sodium Bicarb 50 MEQ/50 ML Abboject 8.4% SYRINGE ONE (14:50)
[2021-03-03] MEDS ORDERED: EPINEPHrine 1 MG/10 ML Abboject SYRINGE ONE (14:50)
[2021-03-03] MEDS ORDERED: Acetaminophen 325 MG TAB PO PRN (15:18)
[2021-03-03] MEDS ORDERED: Guaifenesin DM 100-10/5 ML UDCUP PO PRN (15:18)
[2021-03-03] MEDS ORDERED: HYDROcodone/Acetaminophen 7.5/325 mg Tablet PO PRN (15:18)
[2021-03-03] MEDS ORDERED: Bisacodyl 5 MG TAB PO PRN (15:18)
[2021-03-03] MEDS ORDERED: Zolpidem Tartrate 5 MG TAB PO PRN (15:18)
[2021-03-03] MEDS ORDERED: Ondansetron PF 4 MG/2 ML Vial IVP PRN (15:18)
[2021-03-03 17:23] VITALS: BMI 25.6
[2021-03-03] MEDS: Enoxaparin Sodium 60 MG/0.6 ML SYRINGE SC SCH (17:37)
[2021-03-03] MEDS: Clindamycin/D5W 300 MG/50 ML BAG IVPB SCH (19:08)
[2021-03-04] MEDS: Clindamycin/D5W 300 MG/50 ML BAG IVPB SCH ×2 (00:56→05:06)
[2021-03-04] MEDS ORDERED: Enoxaparin Sodium 80 MG/0.8 ML SYRINGE SC SCH (02:00)
[2021-03-04 05:32] LABS: #Eosinphils 0.2 thou/uL (0.0-0.7); #Lymphocytes 1.1 thou/uL (1.20-3.40); #Monocytes 0.7 thou/uL (0.11-0.59); #Neutrophils 4.3 thou/uL (1.40-6.50); %Basophils 0.4 % (0.0-1.0); %Eosinophils 3.1 % (0.0-10.0); %Lymphocytes 17.2 % (21.0-51.0); %Monocytes 10.8 % (0.0-10.0); %Neutrophils 68.6 % (42.0-75.0); Hemoglobin 12.1 g/dL (12.0-16.0); Mean Corpuscular HGB CONC 31.5 g/dL (32.0-36.0); Mean Corpuscular Hemoglobin 29.6 pg (27.0-31.0); Mean Corpuscular Volume 94.1 fL (78.0-98.0); Mean Platelet Volume 8.2 fL (7.4-10.4); Platelet Count 186 thou/uL (130-400); RBC Distribution Width 17.5 % (11.5-14.5); Red Blood Cell (RBC) Count 4.09 mill/uL (4.20-5.40); White Blood Cell (WBC) Count 6.2 thou/uL (4.8-10.8)
[2021-03-04 05:58] LABS: Anion Gap 13 mmol/L (10-20); BUN (Urea Nitrogen) 30 mg/dL (9.8-20.1); Calc. Creatinine Clearance 59 mL/min (70-130); Carbon Dioxide 27 mmol/L (23-31); Chloride 107 mmol/L (98-107); Glucose 73 mg/dL (83-110); Potassium 4.6 mmol/L (3.5-5.1); Sodium 142 mmol/L (136-145)
[2021-03-04 07:33] VITALS: BP 121/69; TEMP 97.7
[2021-03-04] MEDS ORDERED: Saccharomyces boulardii 250 MG CAP PO SCH (09:00)
[2021-03-04 09:58] LABS: Actual Bicarbonate (HCO3a) 17.6 mEq/L (22-28); Base Excess (BEa) -8.6 mEq/L (-2.0 to +3.0); CO2 Tension 38.5 mmHg (35.0-45.0); Calcium, Ionized (arterial) 1.19 mmol/L (1.12-1.30); Carboxyhemoglobin (COHb) 0.2 gm% (0.0-3.0); Hemoglobin (Hb) 14.2 g/dL (12.0-16.0); Potassium - ABG Lab 4.26 mmol/L (3.70-5.30); pH, Arterial 7.28 (7.35-7.45)
[2021-03-04 09:59] LABS: ALV-art Gradient 613.175 mmHg (0-20); O2 Tension (PaO2), arterial 51.7 mmHg (> 70.0); Puncture Site RRA
[2021-03-04] MEDS ORDERED: PROPOFOL 20 ML ONE (10:14)
[2021-03-04] MEDS ORDERED: Midazolam HCl 2 mg/2 ml Vial ONE ×2 (10:15→10:20)
[2021-03-04] MEDS ORDERED: Norepinephrine 8 MG/0.9% NS 250 ML ONE (10:22)
[2021-03-04] MEDS ORDERED: Propofol 1,000 MG/100 ML VIAL IV ONE (10:26)
[2021-03-04] MEDS ORDERED: Morphine 4 MG/ML VIAL SLOW IVP PRN (10:29)
[2021-03-04] MEDS ORDERED: Fentanyl CADD 100 ML IV SCH (10:30)
[2021-03-04] MEDS ORDERED: Fentanyl BOLUS 250 ML IVPB PRN (10:30)
[2021-03-04] MEDS ORDERED: Lorazepam 2 MG/ML VIAL SLOW IVP PRN (10:30)
[2021-03-04] MEDS ORDERED: Propofol BOLUS 1,000 MG/100 ML VIAL IV PRN (10:30)
[2021-03-04] MEDS ORDERED: Propofol 1,000 MG/100 ML VIAL IV PRN (10:30)
[2021-03-04] MEDS ORDERED: DISCONTINUE PREVIOUS NARCOTIC PAIN MEDICATIONS AND BENZODIAZEPINES FS SCH (10:30)
[2021-03-04] MEDS ORDERED: EPINEPHrine 1 MG/10 ML Abboject SYRINGE ONE ×2 (10:36→11:40)
[2021-03-04] MEDS ORDERED: Lorazepam 2 MG/ML VIAL ONE (10:43)
[2021-03-04] MEDS ORDERED: Sodium Bicarb 50 MEQ/50 ML Abboject 8.4% SYRINGE ONE ×3 (11:18→12:05)
[2021-03-04] MEDS ORDERED: Vasopressin 20 UNIT, Admixture Fee 1 EACH in Sodium Chloride 0.9% 50 ML IV SCH (11:30)
[2021-03-04] MEDS ORDERED: Vecuronium 10 MG VIAL ONE (11:38)
[2021-03-04] MEDS ORDERED: Sodium Bicarbonate 150 MEQ in Dextrose 5% in Water 1,000 ML IV SCH (11:45)
[2021-03-04 11:49] LABS: Actual Bicarbonate (HCO3a) 30.4 mEq/L (22-28); Base Excess (BEa) 1.8 mEq/L (-2.0 to +3.0); Calcium, Ionized (arterial) 0.96 mmol/L (1.12-1.30); Carboxyhemoglobin (COHb) 0.3 gm% (0.0-3.0); Hemoglobin (Hb) 11.2 g/dL (12.0-16.0); O2 Tension (PaO2), arterial 143.6 mmHg (> 70.0); Potassium - ABG Lab 4.21 mmol/L (3.70-5.30)
[2021-03-04 11:50] LABS: CO2 Tension 70.6 mmHg (35.0-45.0); pH, Arterial 7.25 (7.35-7.45)
[2021-03-04 11:51] LABS: Puncture Site Arterial Line
== END 2021-03-04 12:20 | disposition expired | DRG 871 ==
LOC: ERS 11:55 → 2NO 14:22 → CCU 03-04 10:02
PROVIDERS: ADMIT Internal Medicine; ATTEND Internal Medicine
PROC: 5A1935Z Respiratory Ventilation, Less than 24 Consecutive Hours (ICD-10-PCS; principal; 2021-03-04)
PROC: 0BH18EZ Insertion of Endotracheal Airway into Trachea, Via Natural or Artificial Opening Endoscopic (ICD-10-PCS; 2021-03-04)
PROC: 0B9F8ZX Drainage of Right Lower Lung Lobe, Via Natural or Artificial Opening Endoscopic, Diagnostic (ICD-10-PCS; 2021-03-04)
PROC: 0B9C8ZX Drainage of Right Upper Lung Lobe, Via Natural or Artificial Opening Endoscopic, Diagnostic (ICD-10-PCS; 2021-03-04)
PROC: 0B9D8ZX Drainage of Right Middle Lung Lobe, Via Natural or Artificial Opening Endoscopic, Diagnostic (ICD-10-PCS; 2021-03-04)
PROC: 0D9670Z Drainage of Stomach with Drainage Device, Via Natural or Artificial Opening (ICD-10-PCS; 2021-03-04)
PROC: 06HY33Z Insertion of Infusion Device into Lower Vein, Percutaneous Approach (ICD-10-PCS; 2021-03-04)
PROC: 04HY32Z Insertion of Monitoring Device into Lower Artery, Percutaneous Approach (ICD-10-PCS; 2021-03-04)
PROC: 3E033XZ Introduction of Vasopressor into Peripheral Vein, Percutaneous Approach (ICD-10-PCS; 2021-03-04)
DX: A41.9 Sepsis, unspecified organism (principal); I26.93 Single subsegmental thrombotic pulmonary embolism without acute cor pulmonale; J69.0 Pneumonitis due to inhalation of food and vomit; J96.21 Acute and chronic respiratory failure with hypoxia; R65.21 Severe sepsis with septic shock; C34.91 Malignant neoplasm of unspecified part of right bronchus or lung; R57.9 Shock, unspecified; Z20.822 Contact with and (suspected) exposure to COVID-19; I10 Essential (primary) hypertension; F32.A Depression, unspecified; R13.10 Dysphagia, unspecified; Z88.0 Allergy status to penicillin; Z79.899 Other long term (current) drug therapy; Z79.52 Long term (current) use of systemic steroids; Z92.3 Personal history of irradiation; Z92.21 Personal history of antineoplastic chemotherapy; Z78.1 Physical restraint status; Z93.1 Gastrostomy status; Z87.891 Personal history of nicotine dependence; Z99.81 Dependence on supplemental oxygen
CPT/HCPCS: 31624; 36415; 36416; 36600; 71045; 71275; 80048; 80053; 82805; 83605; 84484; 85025; 85610; 85730; 87040; 93005; 93010; 94002; 94660; 94760; 96365; 96366; 96372; J0171; J0696; J1650; J2060; J2250; J2704; J3010; J3490; Q9966; U0002